=== PATIENT | male | born 1965 | race Caucasian/White ===

== ENCOUNTER 2020-07-29 12:34 | Inpatient (IN) | payer BC ==
[~2020-07-29] VITALS: Ht 177.8 cm; Wt 95.3 kg
[2020-07-29] MEDS ORDERED: ASPIRIN 325 MG TABLET PO ONE (13:00)
[2020-07-29] MEDS ORDERED: ASPIRIN 325 MG TABLET ONE (13:02)
[2020-07-29] MEDS ORDERED: DULO60CA45 PO (13:06)
[2020-07-29] MEDS ORDERED: MULT-594 PO (13:06)
[2020-07-29] MEDS ORDERED: LOSA1TAB39 PO (13:06)
[2020-07-29] MEDS ORDERED: GABA600T12 PO (13:06)
[2020-07-29] MEDS ORDERED: DIAZ5TAB PO (13:06)
[2020-07-29] MEDS ORDERED: FOLIC ACID PO (13:06)
[2020-07-29] MEDS ORDERED: VITAMIN B1 PO (13:06)
[2020-07-29] MEDS ORDERED: CLON0.1T PO (13:06)
[2020-07-29 13:28] LABS: BASOPHILS % (AUTO) 1.4 % (0.0-2.0); EOSINOPHILS % (AUTO) 3.9 % (0.0-7.0); HEMATOCRIT 47.9 % (36.7-47.1); HEMOGLOBIN 16.6 g/dL (12.5-16.3); LYMPHOCYTES % (AUTO) 25.7 % (20.5-51.5); MEAN CORPUSCULAR HEMOGLOBIN 34.3 uug (23.8-33.4); MEAN CORPUSCULAR HGB CONC 35 g/dL (32.5-36.3); MEAN CORPUSCULAR VOLUME 98.7 fL (73.0-96.2); MONOCYTES % (AUTO) 10.5 % (0.0-11.0); NEUTROPHILS % (AUTO) 58.5 % (38.5-71.5); PLATELET COUNT (AUTO) 213 K/uL (152-348); RED BLOOD CELL COUNT(AUTO) 4.85 MIL/uL (4.06-5.63); WHITE BLOOD COUNT (AUTO) 7.1 K/uL (3.6-10.2)
[2020-07-29 13:29] LABS: BASOPHILS # (AUTO) 0.1 K/uL (0.0-8.0); EOSINOPHILS # (AUTO) 0.3 K/uL (0.0-0.7); LYMPHOCYTES # (AUTO) 1.8 K/uL (20.0-40.0); MONOCYTES # (AUTO) 0.7 K/uL (2.0-10.0); NEUTROPHILS # (AUTO) 4.2 K/uL (1.8-8.9)
[2020-07-29 13:34] LABS: CREATININE 1.1 mg/dL (0.6-1.3); POTASSIUM 4.1 mmol/L (3.5-5.1)
[2020-07-29 13:47] LABS: BILIRUBIN,DIRECT 0.1 mg/dL (0.0-0.2); BILIRUBIN,TOTAL 0.4 mg/dL (0.2-1.0); TOTAL PROTEIN, SERUM 6.8 g/dL (6.4-8.2)
[2020-07-29] MEDS ORDERED: ACETAMINOPHEN 325 MG TABLET PO ONE (15:15)
[2020-07-29] MEDS ORDERED: LIDOCAINE 5% PATCH TD ONE ×2 (15:15→15:19)
[2020-07-29] MEDS ORDERED: ACETAMINOPHEN 325 MG TABLET ONE (15:19)
[2020-07-29] MEDS ORDERED: NITROGLYCERIN 0.4 MG/TAB BOTTLE SL ONE ×2 (15:30→15:36)
[2020-07-29 16:38] LABS: *AMPHETAMINE, URINE NEGATIVE (NEGATIVE); *CANNABINOID, URINE NEGATIVE (NEGATIVE); *COCCAINE, URINE NEGATIVE (NEGATIVE); *OPIATE, URINE NEGATIVE (NEGATIVE); *PHENCYCLIDINE SCREEN,URINE NEGATIVE (NEGATIVE)
[2020-07-29] MEDS ORDERED: Z GUARD REMEDY PASTE 57 GM TUBE TOP PRN (19:30)
[2020-07-29] MEDS ORDERED: ACETAMINOPHEN 325 MG TABLET PO PRN (19:30)
[2020-07-29] MEDS ORDERED: ONDANSETRON 4 MG/2 ML VIAL IV PRN (19:30)
[2020-07-29] MEDS ORDERED: NITROGLYCERIN 0.4 MG/TAB BOTTLE SL PRN (19:30)
[2020-07-29] MEDS ORDERED: MAGNESIUM HYDROXIDE 30 ML LIQUID UDC PO PRN (19:30)
[2020-07-29] MEDS ORDERED: CLONIDINE HCL 0.1 MG TABLET PO SCH (19:45)
[2020-07-29] MEDS ORDERED: DIAZEPAM 5 MG TABLET PO PRN (19:45)
[2020-07-29] MEDS: HYDROCODONE/APAP 5-325MG TABLET PO PRN (21:46)
[2020-07-29] MEDS ORDERED: ZOLPIDEM 5 MG TABLET PO PRN (23:00)
[2020-07-29] MEDS ORDERED: GABAPENTIN 300 MG CAPSULE PO PRN (23:30)
[2020-07-29] MEDS: CLONIDINE HCL 0.1 MG TABLET PO PRN (23:43)
[2020-07-30] VITALS (8 sets, daily range): BP systolic 127–176; BP diastolic 91–116
[2020-07-30] MEDS: ZOLPIDEM 5 MG TABLET PO PRN ×2 (00:02→20:12)
[2020-07-30] MEDS: HYDROCODONE/APAP 5-325MG TABLET PO PRN ×4 (03:33→23:09)
[2020-07-30 07:59] LABS: BASOPHILS # (AUTO) 0.1 K/uL (0.0-8.0); EOSINOPHILS # (AUTO) 0.3 K/uL (0.0-0.7); EOSINOPHILS % (AUTO) 3.5 % (0.0-7.0); HEMATOCRIT 48.6 % (36.7-47.1); LYMPHOCYTES # (AUTO) 2.3 K/uL (20.0-40.0); LYMPHOCYTES % (AUTO) 28.7 % (20.5-51.5); MEAN CORPUSCULAR HEMOGLOBIN 34.6 uug (23.8-33.4); MEAN CORPUSCULAR HGB CONC 35 g/dL (32.5-36.3); MEAN CORPUSCULAR VOLUME 99.1 fL (73.0-96.2); MONOCYTES # (AUTO) 0.8 K/uL (2.0-10.0); MONOCYTES % (AUTO) 9.4 % (0.0-11.0); NEUTROPHILS # (AUTO) 4.6 K/uL (1.8-8.9); NEUTROPHILS % (AUTO) 57.4 % (38.5-71.5); PLATELET COUNT (AUTO) 238 K/uL (152-348); WHITE BLOOD COUNT (AUTO) 8.1 K/uL (3.6-10.2)
[2020-07-30 08:05] LABS: CREATININE 1.2 mg/dL (0.6-1.3); MAGNESIUM 2.2 mg/dL (1.8-2.4); PHOSPHOROUS 3.2 mg/dL (2.5-4.9); POTASSIUM 3.7 mmol/L (3.5-5.1)
[2020-07-30] MEDS ORDERED: METOPROLOL TARTRATE 50 MG TABLET PO ONE (09:00)
[2020-07-30] MEDS ORDERED: THIAMINE HCL 100 MG TABLET PO ONE (09:00)
[2020-07-30] MEDS ORDERED: HYDROCHLOROTHIAZIDE 25 MG TABLET PO SCH (09:00)
[2020-07-30] MEDS: MULTIVITAMINS,THERAPEUTIC TABLET PO SCH (09:17)
[2020-07-30] MEDS: ASPIRIN 81 MG TAB.CHEW PO SCH (09:17)
[2020-07-30] MEDS: DULOXETINE 60 MG CAPSULE.DR PO SCH (09:17)
[2020-07-30] MEDS: FOLIC ACID 1 MG TABLET PO SCH (09:18)
[2020-07-30] MEDS: LOSARTAN POTASSIUM 50 MG TABLET PO SCH (09:20)
[2020-07-30] MEDS ORDERED: INFLUENZA VACCINE 2020-2021 0.5 ML DISP.SYRIN IM ONE (15:30)
[2020-07-30] MEDS: CLONIDINE HCL 0.1 MG TABLET PO PRN (17:06)
[2020-07-30] MEDS: METOPROLOL TARTRATE 50 MG TABLET PO SCH (20:13)
[2020-07-31] MEDS: HYDROCODONE/APAP 5-325MG TABLET PO PRN ×4 (05:33→18:59)
[2020-07-31] MEDS: CLONIDINE HCL 0.1 MG TABLET PO PRN ×2 (05:33→12:15)
[2020-07-31 08:00] VITALS: BP 162/94
[2020-07-31] MEDS: MULTIVITAMINS,THERAPEUTIC TABLET PO SCH (08:28)
[2020-07-31] MEDS: FOLIC ACID 1 MG TABLET PO SCH (08:29)
[2020-07-31] MEDS: METOPROLOL TARTRATE 50 MG TABLET PO SCH (08:29)
[2020-07-31] MEDS: ASPIRIN 81 MG TAB.CHEW PO SCH (08:29)
[2020-07-31] MEDS: DULOXETINE 60 MG CAPSULE.DR PO SCH (08:29)
[2020-07-31] MEDS: LOSARTAN POTASSIUM 50 MG TABLET PO SCH (08:29)
[2020-07-31] MEDS ORDERED: AMLODIPINE 5 MG TABLET PO SCH (09:15)
[2020-07-31 11:52] VITALS: BP 171/116
[2020-07-31 13:44] VITALS: BP 161/102
[2020-07-31] MEDS ORDERED: ASPI81TA31 PO (14:23)
[2020-07-31] MEDS ORDERED: AMLO-212 PO (14:23)
[2020-07-31] MEDS ORDERED: hydrALAZINE HCL 10 MG TABLET PO PRN (15:00)
[2020-07-31] MEDS ORDERED: PANT40TA2 PO (15:00)
[2020-07-31 16:13] VITALS: BP 164/91
[2020-07-31 17:32] VITALS: BP 163/112
[2020-07-31] MEDS ORDERED: HYDR-4077 PO (17:48)
== END 2020-07-31 19:10 | disposition home or self-care (01) | DRG 392 ==
LOC: ER 12:34 → TELE3 20:25 → MEDSURG3 07-31 09:15
PROVIDERS: ADMIT Nurse Practitioner Acute Care; ATTEND Registered Nurse
DX: K21.00 Gastro-esophageal reflux disease with esophagitis, without bleeding (principal); E78.5 Hyperlipidemia, unspecified; F32.9 Major depressive disorder, single episode, unspecified; I10 Essential (primary) hypertension; F41.9 Anxiety disorder, unspecified; R74.8 Abnormal levels of other serum enzymes; F10.10 Alcohol abuse, uncomplicated; R06.03 Acute respiratory distress; M84.48XS Pathological fracture, other site, sequela; Z91.81 History of falling
CPT/HCPCS: 36415; 70030-TC; 71045; 83690; 83735; 84100; 85025; 90686; 93307; A4663; G0378